=== PATIENT | female | born 1940 | race Caucasian/White ===

== ENCOUNTER 2022-03-20 07:01 | Outpatient (CLI) | payer MEDICARE, SELFPAY | END 2022-03-20 07:02 | disposition home or self-care (01) | LOC: INJ CL 07:03 | PROVIDERS: PCP Family Medicine; Visit Provider Family Medicine | DX: M47.816 Spondylosis without myelopathy or radiculopathy, lumbar region (principal) | CPT/HCPCS: 64493; 64494; J0702; Q9966 ==

== ENCOUNTER 2022-05-29 08:46 | Outpatient (CLI) | payer MEDICARE, SELFPAY | END 2022-05-29 08:47 | disposition home or self-care (01) | LOC: AMB 06-11 12:25 | PROVIDERS: PCP Family Medicine; Visit Provider Emergency Medicine | DX: R42 Dizziness and giddiness (principal) | CPT/HCPCS: A0425; A0427 ==